=== PATIENT | male | born 1995 | race Hispanic/Latino ===

== ENCOUNTER 2016-12-02 12:04 | Emergency (ER) | payer OTHER ==
[~2016-12-02] VITALS: Ht 172.7 cm; Wt 90.7 kg
[~2016-12-02 12:04] MED LIST: AMOXIL500 MG PO; PREDNISONE 20MG20 MG PO; PROTONIX20 M1 PO
[2016-12-02 12:08] VITALS: BP 145/85
[2016-12-02] MEDS ORDERED: DIFLUCAN200 M1 PO (12:37)
[2016-12-02] MEDS ORDERED: CLOTRIMAZOLE15 GM TOP (12:37)
--- NOTE | 2016-12-02 12:38 | ED SKIN/ALLERGY COMPLAINT ---
History of Present Illness General Chief Complaint: Skin Rash/ Abcess Stated Complaint: RASH BEHIND EARS Source: patient, old records Exam Limitations: no limitations Vital Signs & Intake/Output Vital Signs & Intake/Output Vital Signs Date Time Temp Pulse Resp B/P Pulse O2 O2 Flow FiO2 Ox Delivery Rate 12/02 1208 97.2 64 18 145/85 99 Room Air Allergies Coded Allergies: NO KNOWN ALLERGIES (05/25/16) Reconcile Medications No Known Home Medications Triage Note: 21 Y/O MALE C/O RASH BEHIND BILATERAL EARS X FEW DAYS. SMALL AREA OF DRY SKIN NOTED. ALSO C/O BUMP TO L SIDE OF HEAD S/P GETTING A HAIRCUT Triage Nurses Notes Reviewed? yes Onset: 3 weeks Duration: week(s):, constant, continues in ED, getting worse Timing: recent history Severity: moderate Location: scalp Possible Factors: exposure to illness Modifying Factors: Improves With: scratching. Associated Symptoms: change in skin texture, rash HPI: 3 weeks prior to admission patient notes circular rash to left temporal area that he scratched with continued bleeding. Over this time. His developed 2 circular rashes behind his years that are itchy and painful. He denies fever chills nausea vomiting diarrhea abdominal pain chest pain shortness of breath headache dysuria. Past History Travel History Traveled to [place] past 21 day No Medical History Any Pertinent Medical History? 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 No Review of Systems Review of Systems Constitutional: Reports: no symptoms. EENTM: Reports: no symptoms. Respiratory: Reports: no symptoms. Cardiovascular: Reports: no symptoms. GI: Reports: no symptoms. Genitourinary: Reports: no symptoms. Musculoskeletal: Reports: no symptoms. Skin: Reports: see HPI, rash. Neurological/Psychological: Reports: no symptoms. Hematologic/Endocrine: Reports: no symptoms. Immunologic/Allergic: Reports: no symptoms. All Other Systems: Reviewed and Negative Physical Exam Physical Exam General Appearance: well developed/nourished, alert, awake, anxious, mild distress Head: 1.5 cm circular left temporal area with dried blood Eyes: Bilateral: PERRL, EOMI. Ears, Nose, Throat: normal pharynx, hearing grossly normal, moist mucus membranes, bilateral postauricular areas with circular erythematous lesions 1.5 cm2 with satellite lesion Neck: normal inspection, supple Respiratory: normal breath sounds Cardiovascular: regular rate/rhythm Peripheral Pulses: 4+ carotid (R), 4+ carotid (L) Gastrointestinal: soft, non-tender Back: normal inspection Extremities: normal inspection, normal range of motion, no edema Neurologic/Psych: awake, alert, oriented x 3, normal mood/affect Reflexes: 2+: bicep (R), bicep (L). Skin: intact, rash, see ear exam Skin Problem Location: scalp Skin Problem Character: erythema, rash (circular w satellite lesion) Lymphatic: no anterior cervical greg Progress Differential Diagnosis: abscess/cellulitis, allergic reaction, contact dermatitis Plan of Care: clotrimazole Departure Departure Time of Disposition: 1234 Disposition: HOME OR SELF CARE Condition: Stable Clinical Impression Primary Impression: Tinea capitis Referrals: KANDIS MEYER,KYLE Dee (PCP/Family) Departure Forms: Customer Survey General Discharge Information Prescriptions: Current Visit Scripts Clotrimazole 1 SANDRA TOP QAMPM #60 GM Ref 2 apply to affected area(s) for 3 weeks Fluconazole (Diflucan) 1 TAB PO DAILY #3 TAB
== END 2016-12-02 12:57 ==
LOC: ERH 12:04
DX: B35.0 Tinea barbae and tinea capitis (principal)

== ENCOUNTER 2017-04-29 23:43 | Emergency (ER) | payer OTHER ==
[~2017-04-29] VITALS: Ht 167.6 cm; Wt 81.6 kg
[~2017-04-29 23:43] MED LIST changes: +CLOTRIMAZOLE15 GM TOP; +DIFLUCAN200 M1 PO
[2017-04-29 23:56] VITALS: BP 116/65
--- NOTE | 2017-04-30 00:14 | ED SKIN/ALLERGY COMPLAINT ---
History of Present Illness General Chief Complaint: Skin Rash/ Abcess Stated Complaint: " RASH SPREADING ALL OVER BODY" Source: patient Exam Limitations: no limitations Vital Signs & Intake/Output Vital Signs & Intake/Output Vital Signs Date Time Temp Pulse Resp B/P B/P Pulse O2 O2 Flow FiO2 Mean Ox Delivery Rate 04/29 2356 97.3 83 18 116/65 97 Room Air ED Intake and Output 04/30 0000 04/29 1200 Intake Total Output Total Balance Patient 180 lb Weight Weight Estimated Measurement Method Allergies Coded Allergies: NO KNOWN ALLERGIES (05/25/16) Reconcile Medications Clotrimazole 1 % CREAM..G. 1 SANDRA TOP QAMPM ringworm apply to affected area(s) for 3 weeks Fluconazole (Diflucan) 200 MG TABLET 1 TAB PO DAILY tinea capitis Lotrisone (Lotrisone Cream) 1 %-0.05 % CREAM..G. 1 SANDRA TOP TID YEAST INFECTION apply to affected area(s) Triage Nurses Notes Reviewed? yes Onset: Gradual Duration: week(s):, waxing and waning Timing: recent history Severity: mild, moderate Location: scalp, torso, extremities Possible Factors: uncertain etiology Modifying Factors: Improves With: topical steroids. Associated Symptoms: itching HPI: 22 yo gentleman presents with a rash in his umbilicus, groin, beneath his armpits, behind his ears, and in his scalp. He saw a beamer helper who prescribed him hydrocortisone 2.5% and keflex 500mg. He notes that there is no difference in the rash. He notes that the rash is itchy, red, not painful, most pronounced in the umbilicus. He has no fever, chills, nausea, vomiting, diarrhea. Past History Travel History Traveled to [place] past 21 day No Medical History Any Pertinent Medical History? 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 No Review of Systems Review of Systems Constitutional: Reports: no symptoms. EENTM: Reports: no symptoms. Respiratory: Reports: no symptoms. Cardiovascular: Reports: no symptoms. GI: Reports: no symptoms. Genitourinary: Reports: no symptoms. Musculoskeletal: Reports: no symptoms. Skin: Reports: no symptoms. Neurological/Psychological: Reports: no symptoms. Hematologic/Endocrine: Reports: no symptoms. Immunologic/Allergic: Reports: no symptoms. All Other Systems: Reviewed and Negative Physical Exam Physical Exam General Appearance: well developed/nourished, mild distress Head: atraumatic Eyes: Bilateral: normal appearance. Ears, Nose, Throat: normal pharynx, normal ENT inspection, hearing grossly normal Neck: normal inspection, supple Respiratory: normal breath sounds Cardiovascular: regular rate/rhythm Gastrointestinal: soft, non-tender Back: normal inspection Extremities: normal inspection, normal range of motion, no edema Neurologic/Psych: awake, alert, oriented x 3, normal mood/affect Skin: erythematous rash with scales in umbilicus, behind both ears, sonewhat in both axilla, elliptical scaling rash on left temporal region. Lymphatic: no anterior cervical greg Progress Differential Diagnosis: allergic reaction, urticaria, fungal vs eczema vs other. Plan of Care: discussed at length with patient.... Pt has failed topical steroids and keflex... 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 the lesion in the scalp merits derm re- visit. I encouraged him to follow up with his beamer helper. Departure Departure Disposition: HOME OR SELF CARE Condition: Stable Clinical Impression Primary Impression: Rash Secondary Impressions: Fungal skin infection Referrals: KANDIS MEYER,KYLE Dee (PCP/Family) Departure Forms: Customer Survey General Discharge Information Prescriptions: Current Visit Scripts Lotrisone (Lotrisone Cream) 1 SANDRA TOP TID #30 GM Ref 2 apply to affected area(s)
[2017-04-30] MEDS ORDERED: LOTRISONE CREAM15 G1 TOP (00:33)
== END 2017-04-30 00:30 ==
LOC: ERH 23:43
DX: B36.9 Superficial mycosis, unspecified (principal)